=== PATIENT | female | born 1955 | race Hispanic/Latino ===

== ENCOUNTER 2024-07-18 20:01 | Emergency (ER) | payer OTHER ==
[~2024-07-18] VITALS: Ht 144.8 cm; Wt 56.2 kg
[2024-07-18] MEDS: dexaMETHasone SOD PHOSPHATE 4 MG/ML 1ML VIAL IVP ONE (20:35)
[2024-07-18] MEDS: DiphenhydrAMINE HCL 50 MG/ML VIAL IV ONE (20:35)
[2024-07-18] MEDS: FAMOTIDINE 20MG VIAL IV ONE (20:35)
[2024-07-18] MEDS ORDERED: DIPH-1242 PO (21:08)
[2024-07-18] MEDS ORDERED: PRED1TAB PO (21:08)
--- NOTE | 2024-07-18 21:08 | ERN ---
General Chief Complaint: Allergic Reaction Stated Complaint: ALLERGIC REACTION Time Seen by MD: 20:04 History of Present Illness Initial Comments 69-year-old female came in for generalized body rash do with pruritus that started yesterday went away after her primary caregiver some medication and reappeared. Patient states that she is allergic to something at work however does not know the specifics. Patient otherwise denies shortness of breath and chest pain. Patient has no other concerns. Allergies: Coded Allergies: No Known Drug Allergies (Unverified Allergy, Unknown, 07/18/24) Past Medical History Past Medical History: Hypertension Past Surgical History: Other Surgical History Other: LEFT LEG ROS Dictation Allergic reaction Physical Exam Physical Exam Dictation VITAL SIGNS: Reviewed. GENERAL APPEARANCE: Alert, oriented x3, no acute distress, obese. HEAD AND FACE: Non-traumatic. EYES: PERRL, pink conjunctivas, eyelid no trauma, anterior chamber clear. EARS: Pinnas intact and no signs of trauma or erythema. Ear canals clear and no discharge. TMs no erythema. NOSE: No discharge, no bleeding. OROPHARYNX: Mouth normal, teeth no caries, tongue pink. Pharynx clear, no erythema. Tonsils no exudates, no abscesses noted. Mucous membrane moist. NECK: Supple, non-tender, no thyromegaly, no masses, no JVD, no bruits. BREAST: Deferred. CHEST: No tenderness, no crepitus, no paradoxical movement, no retractions. LUNGS: Clear, well-ventilated, symmetric, no rales, no wheezing, no rhonchi, no stridor, good breath sounds bilaterally. HEART: Regular rate, regular rhythm, no murmur, no gallops. VASCULAR: No peripheral edema. ABDOMEN: Soft, positive bowel sounds, nondistended, no guarding, nontender, no rebound, no masses no hepatomegaly, no splenomegaly, no Laguerre's sign, no hernias. RECTAL: Deferred. GENITAL: Deferred. NEUROLOGICAL: Normal speech, gross motor function intact, gross sensory function intact. MUSCULOSKELETAL: Neck nontender, full range of motion, back nontender, full range of motion. EXTREMITIES: Nontender, full range of motion. SKIN: Color pink, dry, no turgor, no rash, no lacerations, no abrasions, no contusions. LYMPHATICS: Deferred. MDM MDM: Differential diagnosis: Rationale: Tests considered and ordered secondary to shared decision making include: Previous outside records reviewed: Old ER visits. Risk of complication and/or morbidity or mortality of patient management: None Medications-Per medication reconciliation Need for hospitalization: Patient does not meet criteria for hospitalization. Need for emergency major/minor surgery: No There are no social concerns with this patient. Prescription drug management Prescriptions will include symptomatic care Patient's prior external medical records from other ER visits were reviewed by me as indicated. Prior testing and results from previous visits were reviewed. Prior tests were taken into account with medical decision making and resource utilization, independent historian/historians were used to obtain complete medical history. I independently interpreted the test that were performed, results were reviewed by me and considered findings on radiology if ordered. Medical management and examination interpretation discussions were had by me wi other qualified healthcare professionals as indicated for the patient's care. ED Course Orders Procedure Category Date Status Time Dexamethasone 4mg/Ml PHA 07/18/24 Complete 1ml Vial (Dexametha 20:30 Famotidine 20mg Vial PHA 07/18/24 Complete (Pepcid 20mg Vial) 20:30 Diphenhydramine Hcl PHA 07/18/24 Complete (Benadryl Inj) 20:30 Current Medications Medications (Trade) Dose Ordered Sig/Nuha Route PRN Reason Start Time Stop Time Status Last Admin Dose Admin Dexamethasone Sodium Phosphate (dexaMETHasone 4MG/ML 1ML VIAL) 6 mg ONCE ONCE IVP 07/18/24 20:30 07/18/24 20:31 DC 07/18/24 20:35 Diphenhydramine HCl (BENAdryl INJ) 25 mg ONCE ONCE IV 07/18/24 20:30 07/18/24 20:31 DC 07/18/24 20:35 Famotidine (Pepcid 20mg Vial) 20 mg ONCE ONCE IV 07/18/24 20:30 07/18/24 20:31 DC 07/18/24 20:35 Vital Signs Date Time Temp Pulse Resp B/P (MAP) Pulse Ox O2 Delivery O2 Flow Rate FiO2 07/18/24 20:12 98.1 78 15 105/42 98 Room Air* 0 21 07/18/24 20:01 99.0 103 18 137/49 99 Room Air DX & DISP Disposition: Discharge Departure Impression: Primary Impression: Allergic reaction Condition: Stable Scripts Diphenhydramine HCl (Benadryl) 25 Mg Cap 25 MG PO DAILY for 5 Days, #5 CAP Prov: TAHMINA CABRAL MD 07/18/24 Prednisone (Prednisone) 1 Mg Tablet 4 TAB PO DAILY for 5 Days, #5 TAB 0 Refills Prov: TAHMINA CABARL MD 07/18/24 Referrals: NINFA CARRILLO MD (PCP) TAHMINA CABRAL MD July 18, 2024 21:08
[2024-07-18 21:14] VITALS: BP 115/54; PULSE 74; RESP 15; TEMP 98.1; O2SAT 97
== END 2024-07-18 21:26 | disposition home or self-care (01) ==
LOC: EDH 20:01
DX: T78.40XA Allergy, unspecified, initial encounter (principal); I10 Essential (primary) hypertension; X58.XXXA Exposure to other specified factors, initial encounter
CPT/HCPCS: 99284; 96374; 96375; J1100; J1200; J3490